=== PATIENT | female | born 1980 | race Caucasian/White ===

== ENCOUNTER 2022-05-18 14:11 | Emergency (ER) | payer OTHER, SELFPAY ==
[2022-05-18 16:00] VITALS: BP 135/78; PULSE 82; RESP 18; TEMP 36.6; O2SAT 99; BMI 31.4
--- NOTE | 2022-05-18 16:07 | ED_ITS ---
HPI - General Adult General Chief complaint: General Medical Stated complaint: Neck Pain Radiating to Head Nausea Time Seen by Provider: 05/18/22 16:43 History of Present Illness HPI narrative: Patient is a 41-year-old female presents today with having left-sided neck pain. It is on the side. There is no spinal tenderness. There is no fever no chills. Patient also had a history of sciatica. Goes onto the leg. There is no bowel urinary incontinence. Patient was given some muscle relaxant sent home. Denies any focal weakness. She has missed her. Her last menstruation was approximately 40 days prior. The pain is sharp. Worse with specific movements. Patient from home. There is no focal weakness. Related Data Previous Rx's Medication Instructions Recorded ibuprofen 400 mg tablet 400 mg PO Q6H PRN pain #20 tabs 05/18/22 Allergies Allergy/AdvReac Type Severity Reaction Status Date / Time No Known Allergies Allergy Verified 05/18/22 15:59 Review of Systems Review of Systems: Positive left sided neck pain Yes all other systems are reviewed and are negative [facility] Past Medical History Attestation statement: The following information was validated with the patient. Social History Social History Advance Directives: No Advance Directives Information Provided: Yes Physical Exam ED Vital Signs: Vital Signs - 24 hr 05/18/22 16:00 Temperature 97.8 F Pulse Rate 82 Respiratory Rate 18 Blood Pressure 135/78 Pulse Oximetry 99 Oxygen Delivery Method Room Air BMI result Body Mass Index 31.4 Appearance: Alert. Oriented X3. No acute distress. Eyes: Pupils equal, round and reactive to light. ENT: Pharynx normal. Neck: Normal inspection. Neck supple. No lymph nodes noted. No crepitus. There is no spinal tenderness elicited. Positive pain on palpation of the trapezius muscle on the left side. CVS: Normal heart rate and rhythm. Pulses normal. Normal S1 and S2 Respiratory: No respiratory distress. Breath sounds normal. No Wheezing. No rales Abdomen: Soft and nontender. No rigidity. No distention. good BS x4 Skin: Skin warm and dry. Normal skin color. Normal skin turgor. Extremities: No lower extremity edema. Neurovascular intact to all extremities. No Lacerations. No Rash Neuro: Oriented X 3. No motor deficit. No sensory deficit. Moving all extermities. No slurred speech. Sensation in the bilateral lower extremity i ntact. Motor intact ambulating with normal gait. Medical Decision Making Medical Decision Making MDM Narrative: Patient's pain worse with specific movement consistent with having torticollis. Will give Motrin for pain. Patient missed her menstruation will check her status. Unlikely she has subarachnoid hemorrhage. Unlikely he has cauda equina syndrome as patient is neurologically intact and history not consistent with having an intracranial bleed. She is well appearing. Will ask patient to continue taking Flexeril. In stable condition Discharge Plan Discharge Clinical Impression: Torticollis Patient Disposition: Home, Self-Care Instructions: Spasmodic Torticollis (ED) Prescriptions: New ibuprofen 400 mg tablet 400 mg PO Q6H PRN (Reason: pain) Qty: 20 0RF Referrals: Physician,Unknown J [Primary Care Provider] - (Follow-up with your primary physician on an outpatient basis. Uncontrolled pain return.)
[2022-05-18 16:47] LABS: UPreg QC Valid YES; Urine Pregnancy NEGATIVE (NEGATIVE)
--- OUTSIDE RECORDS SUMMARY | 2022-05-18 17:09 | XMS_ITS ---
:1980 Author Care Team Providers Name Role Phone Fred Carver Primary Care Provider Unavailable Allergies None recorded. Medications Name Status Start Date Stop Date ? ? amoxicillin 500 mg capsule Active ? Not a vailable azithromycin 250 mg tablet Active ? Not a vailable Cetrotide 0.25 mg subcutaneous kit Active ? Not available clomiphene citrate 50 mg tablet Active ? Not available clonazepam 1 mg tablet Active ? Not avail able doxycycline hyclate 100 mg tablet Active ? Not available fluoxetine 10 mg capsule Active ? Not valencia ilable fluoxetine 20 mg capsule Active ? Not valencia ilable Gonal-F RFF Redi-Ject 900 unit/1.5 mL subcutaneous pen Active ? Not available injector letrozole 2.5 mg tablet Active ? Not avai lable leuprolide 1 mg/0.2 mL subcutaneous kit Active ? Not available levothyroxine 25 mcg tablet Active ? Not available lorazepam 1 mg tablet Active ? Not availa ble Menopur 75 unit subcutaneous solution Active ? Not available omeprazole 20 mg capsule,delayed release Active ? Not available Ovidrel 250 mcg/0.5 mL subcutaneous syringe Active ? Not available prednisone 5 mg tablet Active ? Not avail able Problems None recorded. Procedures None recorded. Results Lab Results None recorded. Past Encounters None recorded. Social History None recorded. Vaccine List None recorded. Plan of Care Reminders Provider Appointments None recorded. ? ? Lab None recorded. ? ? Referral None recorded. ? ? Procedures None recorded. ? ? Surgeries None recorded. ? ? Imaging None recorded. ? ? Vitals None recorded.
== END 2022-05-18 17:24 | disposition home or self-care (01) ==
PROVIDERS: Emergency Provider Emergency Medicine Emergency Medical Services
DX: M43.6 Torticollis (principal); M54.2 Cervicalgia; R51.9 Headache, unspecified; Z79.899 Other long term (current) drug therapy
CPT/HCPCS: 81025; 99282

== ENCOUNTER 2024-05-24 11:12 | Outpatient (AMB) | payer OTHER, SELFPAY ==
--- OUTSIDE RECORDS SUMMARY | 2024-05-24 11:14 | XMS_ITS | Data Portability ---
Author Organization [facility] (Prof.) Address [address], [address] [place] [address] Assessment No assessment recorded. Plan of Treatment Reminders Order Date Submit Date Provider Last Modified By Organization Details Last Modified Time Details Appointments None record ed. Lab None record ed. Referral None record ed. Procedures None record ed. Surgeries None record ed. Imaging None record ed. Medication Orders None record ed. Patient TargetsNo targets recorded. Patient InstructionsNo instructions recorded. Reason for Referral None Reported. Medical Equipment None Reported. Medications Name Sig Start Date Stop Date Status Note LastModified by Organization Details LastModified Time amoxicillin 500 mg capsule active Not Available Not Available N ot Available azithromycin 250 mg tablet active Not Available Not Availabl e Not Available clomiphene citrate 50 mg tablet active Not Available Not Available Not Available prednisone 5 mg tablet active Not Available Not Available Not Available clonazepam 1 mg tablet active Not Available Not Available Not Available levothyroxine 25 mcg tablet active Not Available Not Availabl e Not Available fluoxetine 10 mg capsule active Not Available Not Available N ot Available omeprazole 20 mg capsule,delayed release active Not Available Not Available Not Available lorazepam 1 mg tablet active Not Available Not Available Not Available letrozole 2.5 mg tablet active Not Available Not Available No t Available Cetrotide 0.25 mg subcutaneous kit active Not Available Not Available Not Available fluoxetine 20 mg capsule active Not Available Not Available N ot Available doxycycline hyclate 100 mg tablet active Not Available Not Available Not Available leuprolide 1 mg/0.2 mL subcutaneous kit active Not Available Not Available Not Available Ovidrel 250 mcg/0.5 mL subcutaneous syringe active Not Available Not Available Not Available Menopur 75 unit subcutaneous solution active Not Available Not Available Not Available Gonal-F RFF Redi-Ject 900 unit/1.5 mL subcutaneous pen injector active Not Available Not Available Not Available Vitals None Recorded Social History None recorded. Functional Status None recorded. Mental Status None recorded. Family History Nothing Reported. Medical History No medical history recorded. Gynecological HistoryNo gynecological history recorded. Obstetrics History GPAL:G 0 P 0 0 0 0 Past Encounters Encounter ID Performer Location Encounter Start Date Encounter Closed Date Diagnosis/Indication Diagnosis SNOMED-CT Code Diagnosis ICD10 Code [id number] [place] [id number] 10/12/2017 15:19:08 10/12/2017 15:19:39 Health Concerns Section Related Observation LastModified by Organization Detai ls LastModified Time None Recorded Concern Status LastModified by Organization Details LastModified Time None Recorded Advance Directives Directive None Recorded Payers Encounter Date Sequence Insurance Name Policy Number Policy [place] Covered Member ID [place] Member ID Guarantor Name 10/11/[address] [facility] [employer] 105 Talha Guillen [id number] Leeann Guillen OBGyn Episode No OBEpisode recorded.
--- NOTE | 2024-05-24 11:19 | MHC.PC.OV ---
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- aripiprazole 2 mg PO DAILY clonazepam 1 mg PO BID desvenlafaxine succinate ER 50 mg PO DAILY dextroamphetamine-amphetamine 30 mg 1 tab PO DAILY ibuprofen 400 mg PO Q6H PRN omeprazole 20 mg PO DAILY Tobacco use date assessed: 05/24/24 Dental Screening Dental Screen Date: 05/24/24 Did you have a dental visit in the last 12 months?: No Did you have a dental problem in the last 6 months where you did not have access to dental care?: No Was dental information given to patient?: Patient has dentist HPI HPI Comments History of Present Illness Details 43 y/o F ADHD, GERD, JYOTSNA, PTSD, deviated septum, cold induced asthma, family hx of colon ca and colonic polyps, 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 She has a long-standing history of panic disorder with agoraphobia, generalized anxiety disorder, and complex post-traumatic stress disorder with onset in adolescence. She has been under psychiatric care since the age of 18, with ongoing management of her anxiety and panic symptoms, including the use of clonazepam which she takes responsibly without overuse. The patient reports previously switching from her psychiatrist to a primary care physician for medication management before resuming care with her psychiatrist, Eliza Guzmán. She experiences chronic insomnia exacerbated by anxiety, compounding her fatigue. She reports a history of ADHD, with intermittent use of prescribed Adderall, which she finds conflicting with her schedule. Furthermore, the patient mentions weight gain since the COVID pandemic, attributing it partly to stress and lifestyle changes. The patient presents a history of a deviated nasal septum leading to sinus infections and sleep disturbance, often resulting in her mouth breathing. She experiences symptoms consistent with IBS, which she associates with anxiety. Additionally, she reports TMJ as a stress-related condition affecting her jaw alignment. Wants referral to breast surgeon for reduction. 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 on PPI - Musculoskeletal: Reports jaw alignment issues, TMJ - Reproductive: Menstrual cycle regularity discussed Physical Exam - Vital Signs- Blood pressure 122/70 mmHg Awake alert NAD RRR LS CTAB Mood and affect appropriate Plan - Continue clonazepam under psychiatrist's supervision for anxiety and panic control - Reinforce adherence to psychiatric medications prescribed - Schedule and complete lab tests including complete metabolic panel and thyroid function - Provide ENT referral for assessment of deviated septum and possible sleep apnea - GI referral for IBS and chronic heartburn evaluation, including colonoscopy due to family history - Discuss weight management and dietary counseling as needed Refer to breast surgeon Patient was informed and verbally consented to the use of an ambient scribe for clinic note documentation during this visit. Discussion Notes During the consultation, I discussed the management of the patient's psychiatric conditions, emphasizing the need to adhere to medications under her psychiatrist?s guidance. We reviewed the potential chronicity of ADHD and discussed the importance of investigating possible contributing factors to her weight gain. I advised on lab work to rule out metabolic disorders, including thyroid dysfunction and vitamin deficiencies. The patient expressed interest in addressing chronic sinus issues, prompting ENT referral for a comprehensive evaluation. We addressed concerns regarding IBS symptoms, providing a GI referral to manage these along with recommendations for weight management strategies. Consent was obtained for laboratory testing and vaccinations. Patient Instructions - Follow up on all lab work ordered and attend scheduled imaging and consultations - Continue with current psychiatric medications and attend follow-up appointments with a psychiatrist - Use prescribed medications for IBS and heartburn as needed - Consider scheduling a full physical exam for a more thorough assessment - Report any new or worsening symptoms, especially related to anxiety or gastrointestinal changes - Continue monitoring and maintaining a healthy lifestyle, diet, and weight management - Sign up for the patient portal for easy communication and access to test results and appointments RTO IN 6 WEEKS TO REVIEW LABS, CLINICAL BREAST EXAM AND PAP, SOONER PRN THIS NOTE IS CONSTRUCTED USING VOICE RECOGNITION SOFTWARE. 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 TOTAL TIME SPENT CARING FOR THE PATIENT TODAY WAS 50 MINUTES. THIS INCLUDES TIME SPENT BEFORE THE VISIT REVIEWING THE CHART, TIME SPENT DURING THE VISIT, AND TIME SPENT AFTER THE VISIT ON DOCUMENTATION [facility] Medical History Anxiety and depression Imbalance GERD (gastroesophageal reflux disease) IBS (irritable bowel syndrome) Back disorder Thyroid disease Sinusitis Surgical History H/O shoulder surgery Family History (Updated 05/24/24 @ 12:41 by Dania Oconnell MA) Mother Hypertension Cardiovascular disease Alcoholism Father Hypertension High cholesterol Sister Asthma Maternal Grandfather Alcoholism Social History (Updated 05/24/24 @ 11:30 by Dania Oconnell MA) Household Members: Children Both parents involved: No Caregiver staying overnight: No Housing: House Are you a primary lead caregiver to a significant other at home: Yes Do you presently have visiting nurse or other home services: No 75 years or older and lives alone: No Alcohol intake: current Alcohol intake frequency: a few times a month Patient Tobacco Use Status: Never used Tobacco e-Cigarette/Vaping Use: Currently Using Second Hand Smoke Exposure: No service: No Current occupational status: employed 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 1. Little interest or pleasure in doing things: not at all 2. Feeling down, depressed, or hopeless: several days 3. Trouble falling or staying asleep, or sleeping too much: more than half the days 4. Feeling tired or having little energy: several days 5. Poor appetite or overeating: more than half the days 6. Feeling bad about yourself - or that you are a failure or have let yourself or your family down: several days 7. Trouble concentrating on things, such as reading the newspaper or watching television: several days 8. Moving or speaking so slowly that other people could have noticed. Or the opposite - being so fidgety or restless that you have been moving around a lot more than usual: not at all 9. Thoughts that you would be better off or of hurting yourself in some way: not at all Total score: 8 Depression Screening Interpretation: Positive Depression Screening Follow-up: Existing condition and In treatment Depression Screening Done: Yes 17799 - PHQ-9 Billing: Yes Source: Developed by Drs. Geoffrey Capellan, Beth Cheek, Fernando Costello and colleagues, with an educational marina from [employer]. Thrive Questionnaire Date Thrive assessed: 05/24/24 I am a: Patient What is your living situation today?: I have a steady place to live Within the past 12 months, did the food you bought not last and you didn't have the money to get more?: Never true Within the past 12 months, did you worry whether your food would run out before you got money to buy more?: Never true Do you have trouble paying for medicines?: No Do you have trouble getting transportation to medical appointments?: No Do you have trouble paying your heating and electricity bill?: No Do you have trouble taking care of your child, family member or friend?: No Do you have trouble with day-to-day activities such as bathing, preparing meals, shopping, managing finances, etc.?: Yes (sometimes) Are you currently unemployed and looking for a job?: No Are you interested in more education?: No Please select the resources that you would like help with: None THRIVE Score: 0 AUDIT C Alcohol Use Questionnaire (AUDIT-C) 1. How often do you have a drink containing alcohol?: 2-4 times a month 2. How many drinks containing alcohol do you have on a typical day when you are drinking?: 3 or 4 3. How often do you have six or more drinks on one occasion?: Never Total Score: 3 Score Reviewed/Action Taken: Yes JYOTSNA-7 AMB Questionnaire JYOTSNA-7 Date JYOTSNA - 7 assessed: 05/24/24 Feeling nervous, anxious, or on edge: 2 = More than half the days Not being able to stop or control worryin = More than half the days Worrying too much about different things: 1 = Several days Trouble relaxin = Not at all Being so restless that it is hard to sit still: 0 = Not at all Becoming easily annoyed or irritable: 1 = Several days Feeling afraid as if something awful might happen: 1 = Several days Total JYOTSNA-7 score (0-4 normal; 5-9 mild; 10-14 moderate; 15-21 severe): 7 Source: Developed by Drs. Geoffrey Capellan, Beth Cheek, Fernando Costello and colleagues, with an educational marina from [employer]. JYOTSNA-7 Assessment Billing JYOTSNA-7 Assessment Tool: JYOTSNA-7 Assessment 58644 Physical exam (Primary Care) Vital Signs: Last Vital Signs Pulse 78 05/24/24 11:31 Resp 13 05/24/24 11:31 BP 122/70 05/24/24 11:31 Pulse Ox 97 05/24/24 11:31 Oxygen Delivery Method Room Air 05/24/24 11:31 BMI result Body Mass Index 30.9 BMI Assessment/Plan discussion: High BMI High, discussed plan: lifestyle Tobacco/Smoking Status: Tobacco use Status Tobacco use date assessed 05/24/24 05/24/24 11:33 Patient Tobacco Use Status Never used Tobacco 05/24/24 11:33 e-Cigarette/Vaping Use Currently Using 05/24/24 11:33 PHQ-9: PHQ-9 Score PHQ-9: Total score 8 05/24/24 12:44 Depression Screening Interpretation: Positive Depression Screening Follow-up: Existing condition and In treatment Thrive Assessment: Date of Thrive Assessment Date Thrive assessed 05/24/24 05/24/24 12:44 Office Procedures Flu Questionnaire Does the patient have a severe egg allergy?: No Does the patient have severe life threatening allergies?: No Does the patient have a fever or illness today?: No Has the patient ever had Guillain-[place] Syndrome?: No Has the patient ever had any past reaction to a flu shot?: No Immunizations Fluarix Triv [id number] (PF) 45 mcg (15 mcg x 3)/0.5 mL IM syringe Performing Provider: BILL Rodas Performing Location: [facility] Family Medicine Administered by: Rolanda Rivera RN on 05/24/24 12:28 Dose Route Admin Location Dispensed Lot Number Expiration Date [facility] Cad Librarian 0.5 mL IM Right Deltoid 0.5 mL [id number] 12/09/24 [id number] Cor[employer] VIS Given Date VIS Provided VIS Publication Date 05/24/24 Single Vaccine 21 Eligibility Eligibility Date Funding Source Not [facility] Eligible 05/24/24 Private Coding Level of Care Code New Pt Level 5 (04472) Complex EM visit Add On G2211 Diagnoses Encounter to establish care Z76.89 JYOTSNA (generalized anxiety disorder) F41.1 PTSD (post-traumatic stress disorder) F43.10 BMI 30.0-30.9,adult Z68.30 Obesity (BMI 30-39.9) E66.9 Laboratory exam ordered as part of routine general medical examination Z00.00 Deviated septum J34.2 Family history of colon cancer Z80.0 Family history of colonic polyps Z83.719 Bilateral temporomandibular joint pain M26.623 Laterality: bilateral GERD without esophagitis K21.9 Gynecomastia, female N62 Influenza vaccination administered at current visit Z23 Additional Codes JYOTSNA-7 Assessment Billing - JYOTSNA-7 Assessment Tool: JYOTSNA-7 Assessment 75866 ([id number]) PHQ-9 - 93601 - PHQ-9 Billing: Yes ([id number]) Assessment & Plan Assessment & Plan (1) Encounter to establish care: Code(s): Z76.89 - Persons encountering health services in other specified circumstances (2) JYOTSNA (generalized anxiety disorder): Code(s): F41.1 - Generalized anxiety disorder Category: Medical (3) PTSD (post-traumatic stress disorder): Code(s): F43.10 - Post-traumatic stress disorder, unspecified Category: Medical (4) BMI 30.0-30.9,adult: Code(s): Z68.30 - Body mass index [BMI] 30.0-30.9, adult Category: Medical (5) Obesity (BMI 30-39.9): Code(s): E66.9 - Obesity, unspecified Category: Medical (6) Laboratory exam ordered as part of routine general medical examination: Code(s): Z00.00 - Encounter for general adult medical examination without abnormal findings Category: Medical (7) Deviated septum: Code(s): J34.2 - Deviated nasal septum Category: Medical (8) Family history of colon cancer: Comment: maternal grandmother Code(s): Z80.0 - Family history of malignant neoplasm of digestive organs Category: Medical (9) Family history of colonic polyps: Comment: DAD Code(s): Z83.719 - Family history of colon polyps, unspecified Category: Medical (10) TMJ arthralgia: Code(s): M26.629 - Arthralgia of temporomandibular joint, unspecified side Category: Medical Qualifiers: Laterality: bilateral Qualified Code(s): M26.623 - Arthralgia of bilateral temporomandibular joint (11) GERD without esophagitis: Code(s): K21.9 - Gastro-esophageal reflux disease without esophagitis Category: Medical (12) Gynecomastia, female: Code(s): N62 - Hypertrophy of breast Category: Medical (13) Influenza vaccination administered at current visit: Code(s): Z23 - Encounter for immunization Plan . Orders: Orders Complete Blood Count no Diff Today Z00.00 - Encounter for general adult medical examination without abnormal findings Comprehensive Met. Panel Today Z00.00 - Encounter for general adult medical examination without abnormal findings Lipid Panel Today Z00.00 - Encounter for general adult medical examination without abnormal findings IRON PROFILE Today Z00.00 - Encounter for general adult medical examination without abnormal findings TSH reflex Free T4 Today Z00.00 - Encounter for general adult medical examination without abnormal findings Influenza [id number] Immunization Today Z23 - Encounter for immunization Hemoglobin A1c Today Z00.00 - Encounter for general adult medical examination without abnormal findings Microalbumin, Random (w Creat) Today Z00.00 - Encounter for general adult medical examination without abnormal findings Vitamin B12 and Folate Today Z00.00 - Encounter for general adult medical examination without abnormal findings Vitamin D 25-OH Total Today Z00.00 - Encounter for general adult medical examination without abnormal findings Referrals Breast Surgery Referral N62 - Hypertrophy of breast Ear/Nose/Throat Referral J34.2 - Deviated nasal septum Gastroenterology Referral K21.9 - Gastro-esophageal reflux disease without esophagitis, Z12.11 - Encounter for screening for malignant neoplasm of colon, Z80.0 - Family history of malignant neoplasm of digestive organs, Z83.719 - Family history of colon polyps, unspecified Medications: New omeprazole 20 mg PO DAILY 90 caps 2RF Patient Instructions: [facility] [place], [place] / [place], [place] [phone]:[id number] Walk-In Care (Urgent Care): We Make it Easy Walk-in for urgent medical issues such as: ? Seasonal Allergies ? Insect Bites ? Cough ? Diarrhea ? Acute Asthma Attacks ? Back, Knee or Joint Pain ? Ear Infection ? Fever without a Rash ? Headaches ? Nausea ? Bend Eye, Rash or Skin Irritation ? Sore Throat ? Sports Physicals ? Vomiting Most insurances are accepted. Patients do not need to be part of the [facility] to seek care at the walk-in clinic. Locations [facility] , [place] [address] ? [phone] [facility] Walk-In Care in [place] provides services to ages 18 and over. Open Monday-Monday: 8 a.m. to 5 p.m. and Monday: 9 a.m. to 3 p.m.* *Hours may vary due to staffing availability. To confirm Walk-In Care hours in [place], please call [phone]. [address] [place] [address] ? [phone] [facility] Walk-In Care in [place] provides services to ages 12 and over. Open Monday-Monday: 8 a.m. to 5 p.m. Hours may vary due to staffing availability. To confirm Walk-In Care hours in [place], please call [phone]. LABORATORY SERVICES: [facility] Lab ? Primary Location [address] [place] [address] Monday through Monday 6:00 AM ? 5:00 PM Monday 7:00 AM ? 11:00 AM* [phone] The [facility] Lab is centrally located near the front entrance of the [facility] for easy outpatient access. Convenient parking is provided for outpatients. *Hours may vary due to staffing availability. To confirm Laboratory hours for any location, please call [phone]. Offsite Location For your convenience, we offer offsite laboratory draw stations at the following locations: [address] [place] [address] ? [facility] [address] [facility], [address], [place] Monday through Monday 7:30 AM ? 1:00 PM* [phone] *Hours may vary due to staffing availability. To confirm Laboratory hours for any location, please call [phone]. [place] ? [address], [place] Monday through Monday 6:00 AM ? 3:30 PM* Monday 6:30 AM ? 3 PM* [phone] *Hours may vary due to staffing availability. To confirm Laboratory hours for any location, please call [phone] [place] [address] Monday through Monday 7:30 AM ? 4:00 PM* [phone] *Hours may vary due to staffing availability. To confirm Laboratory hours for any location, please call [phone] [place] [address] Monday through 9:00 AM ? 4:00 PM* *Hours may vary due to staffing availability. To confirm Laboratory hours for any location, please call [phone]. Appointments are not necessary. Walk-ins are welcome. Like all the departments throughout the [facility], our Lab undergoes frequent reviews to ensure the quality and accuracy of test results, and our staff takes special pride in its status as a nationally accredited facility. Patient Portal: ONE PATIENT. ONE RECORD. BETTER CARE. [facility] has a fully integrated, cutting-edge mobile electronic health information system that has revolutionized the way we care for our patients and manage our organization. This system improves communication and coordination enabling us to provide safe, higher-quality care, and an overall positive experience for staff and patients. Our first priority, as always, is to deliver the highest quality care possible. The system is running in the background supporting that priority. This portal is for all [facility] services and practices. If you are experiencing any technical difficulties with enrolling or logging into the Patient Portal please complete the [facility] Patient Portal Technical Support Form. [facility] now offers a new secure on-line interactive tool for patients to review their health information ? Patient Portal. This interactive web portal will enable patients and their families to take an active role in their care by providing easy, secure access to their health information via the internet. The Patient Portal provides patients with instant access to their health information, including laboratory results, medications, allergies, demographic information, visit history, and more. In addition to managing their own care, parents and health care proxies with authorized consent will appreciate the ability to access the records of those individuals for whom they provide care. Please note: if you wish to gain access (Proxy) to another patient?s portal, you will be required to come to the Medical Records Department in person at [facility]. Both the patient giving proxy access and the proxy will need to provide photo identification and complete the appropriate authorization. The Patient Portal also allows track their appointments online. The [facility] Patient Portal also saves patients time by allowing them to submit updates to their demographic and contact information prior to their visits. Portal email notifications will also alert patients to any new activity on their portal, such as test results and new appointments. In order to initially enroll in the [facility] Patient Portal, you will need to enter some required information including the following: ? your [facility] Medical Record number ? your personal home email address ? name ? date of Please note: In order to enroll in the [facility] Patient Portal, we need to have your email address on file in your electronic medical record. The email address needs to be specific for one person (yourself) in order for your Portal enrollment to be successful. You can update your email address in person with our Registration staff when you are registering for a hospital visit. Otherwise, you will need to come to the Health Information Management (Medical Records) Department at [facility]. We are open from Monday ? Monday from 7:30 a.m. ? 4:30 p.m. You will be required to present a photo id. Once you have successfully enrolled in the Patient Portal, you will receive a one-time user id and password for the Portal, sent to your email address. This will allow you to log into the Patient Portal within 99 hrs and reset your own logon id and password, and define personal security questions. Once your permanent login and password have been set, you can log into the [facility] Patient Portal at any time via the blue button above or from the Portal Logon button on any page of the [facility] website. [facility] encourage all of our patients to enroll in Patient Portal as it presents a valuable opportunity for patients and their families to actively participate in their care and stay healthy Welcome to [facility]. We look forward to working with you.
[2024-05-24 11:31] VITALS: BP 122/70; PULSE 78; RESP 13; O2SAT 97; BMI 30.9
== END 2024-05-24 12:27 | disposition home or self-care (01) ==
PROVIDERS: Visit Provider Nurse Practitioner Family
DX: J34.2 Deviated nasal septum (principal); F41.1 Generalized anxiety disorder; E66.9 Obesity, unspecified; Z68.30 Body mass index [BMI] 30.0-30.9, adult; F43.10 Post-traumatic stress disorder, unspecified; Z76.89 Persons encountering health services in other specified circumstances; Z80.0 Family history of malignant neoplasm of digestive organs; Z83.719 Family history of colon polyps, unspecified; M26.623 Arthralgia of bilateral temporomandibular joint; K21.9 Gastro-esophageal reflux disease without esophagitis; N62 Hypertrophy of breast; Z23 Encounter for immunization

== ENCOUNTER → 2024-05-24 11:12 | Outpatient (BNVA) | payer SELFPAY | PROVIDERS: Visit Provider Nurse Practitioner Family | DX: Z76.89 Persons encountering health services in other specified circumstances (principal); Z23 Encounter for immunization; F41.1 Generalized anxiety disorder; F43.10 Post-traumatic stress disorder, unspecified; E66.9 Obesity, unspecified; Z68.30 Body mass index [BMI] 30.0-30.9, adult; J34.2 Deviated nasal septum; M26.623 Arthralgia of bilateral temporomandibular joint; K21.9 Gastro-esophageal reflux disease without esophagitis; N62 Hypertrophy of breast; Z80.0 Family history of malignant neoplasm of digestive organs; Z83.719 Family history of colon polyps, unspecified | CPT/HCPCS: 90471; 90656; 96127 ==

== ENCOUNTER 2025-02-26 09:40 | Outpatient (REF) | payer OTHER, SELFPAY | END 2025-02-26 09:41 | disposition home or self-care (01) | LOC: HO.LNP 09:40 | PROVIDERS: PCP Nurse Practitioner Family; Visit Provider Nurse Practitioner Family | DX: Z11.3 Encounter for screening for infections with a predominantly sexual mode of transmission (principal); Z12.4 Encounter for screening for malignant neoplasm of cervix; N32.81 Overactive bladder; E66.9 Obesity, unspecified; N39.0 Urinary tract infection, site not specified; E78.2 Mixed hyperlipidemia; R79.89 Other specified abnormal findings of blood chemistry; Z68.31 Body mass index [BMI] 31.0-31.9, adult | CPT/HCPCS: 88175; 96127 ==

== ENCOUNTER 2025-02-26 09:40 | Outpatient (AMB) | payer OTHER, MEDICAID, SELFPAY ==
--- OUTSIDE RECORDS SUMMARY | 2025-02-25 14:00 | XMS_ITS | Encounter Summary ---
Author Organization [facility] Address [address] [place] [address] [place] [id number] Phone Care Team Providers Care Vice Principal Name Role Phone Pcp, Unknown Primary Care Provider Unavailabl e Reason for Visit * Reason Comments Urinary Tract Infection Nausea, back genevieve n, lower abdominal pressure, cloudy urine. Urinary urgency and frequency. No concern for STDs. Encounter Details Date Type Department Care Team ([facility] st Contact Info) Description 02/25/2025 2:00 PM EDT Office Visit [facility] at [address] [address] Jocelyn Marte, FUEL VERIFICATION TECHNICIAN [address] [place] [id number] [email or web address] Acute cystitis without hematuria (Primary Dx); Frequency of micturition Social History Tobacco Use Types Packs/Day Years Used Date Smoking Tobacco: Former Smokeless Tobacco: Never Alcohol Use Standard Drinks/Week Comments Yes 0 (1 standard drink = 0.6 oz pur e alcohol) social Education Answer Date Recorded Are you interested in more education? Not on suresh e 10/08/2022 Are you concerned about learning? Not on file 10/08/2022 No 10/08/2022 No 10/08/2022 Digital Access Answer Date Recorded No 11/06/2022 No 11/06/2022 Reliable internet access at home? Not on file 11/06/2022 Device with a working camera? Not on file Comments Unknown Sex and Gender Information Value Date Recorded Sex Assigned at Not on file Legal Sex Female 8:56 AM EST Gender Identity Not on file Sexual Orientation Not on file documented as of this encounter Last Filed Vital Signs Vital Sign Reading Time Taken Comments Blood Pressure 131/86 02/25/2025 2:08 PM EDT Pulse 82 02/25/2025 2:08 PM EDT Temperature 37.2 C (98.9 F) 02/25/2025 2:08 PM EDT Respiratory Rate 18 02/25/2025 2:08 PM EDT Oxygen Saturation 98% 02/25/2025 2:08 PM EDT Inhaled Oxygen Concentration - - Weight - - Height - - Body Mass Index - - documented in this encounter Patient Instructions * Patient Instructions* Jocelyn Marte CNP - 02/25/2025 2:00 PM EDT Unfortunately it does appear as though there is a urinary tract infection Stay hydrated and use ogel-lyz-tdjydch cranberry tabs for symptomatic relief The full dose of antibiotic as prescribed Develop fever or back pain in the next 24 hours seek emergent follow-up care * Attachments The following attachments cannot be sent through Care Everywhere. * Nitrofurantoin (Syriac) documented in this encounter Progress Notes * Jocelyn Marte CNP - 02/25/2025 2:00 PM EDTAddended by: JOCELYN MARTE on: 02/25/2025 03:50 PM Modules accepted: Orders * Jocelyn Marte CNP - 02/25/2025 2:00 PM EDT Images from the original note were not included. Subjective: Patient ID: Leeann Guillen is a 44 y.o. female. 44-year-old female presents with question of cystitis. States about 5 days ago she noted some dysuria. She no longer has dysuria but notes some nausea, lower abdominal pressure, cloudy urine with a strong odor. Patient has no history of renal calculi. She states there is some mild low back pain butthat is after she bent over to pet her cat this morning and she felt some discomfort. Denies risk for STIs. No vaginal discharge or lesions. Patient states she has felt feverish and chilly on and offbut has not run an actual fever. Review of Systems Constitutional: Positive for fatigue. Negative for chills, diaphoresis and fever. States feels alternately feverish and chilly but not actually running a fever HENT: Negative for postnasal drip, rhinorrhea, sore throat and trouble swallowing. Respiratory: Negative for cough. Gastrointestinal: Positive for nausea. Negative for abdominal pain (upset stomach) and vomiting. Genitourinary: Positive for dysuria, frequency, pelvic pain (pressure) and urgency. Negative for flank pain, genital sores, blood in urine, menstrual problem, vaginal bleeding, vaginal discharge and vaginal pain. Allergic/Immunologic: Negative for immunocompromised state. Hematological: Does not bruise/bleed easily. Skin: Negative for persistent rash. Vitals: 02/25/25 1408 BP: 131/86 Pulse: 82 Resp: 18 Temp: 37.2 ??C (98.9 ??F) SpO2: 98% Objective: Physical Exam Vitals and nursing note reviewed. Constitutional: General: She is not in acute distress. Appearance: Normal appearance. She is obese. She is not ill-appearing, toxic- appearing or diaphoretic. HENT: Head: Normocephalic and atraumatic. Cardiovascular: Rate and Rhythm: Normal rate and regular rhythm. Heart sounds: Normal heart sounds. No murmur heard. No friction rub. No gallop. Pulmonary: Effort: Pulmonary effort is normal. No respiratory distress. Breath sounds: Normal breath sounds. No stridor. No wheezing or rhonchi. Abdominal: General: There is no distension. Palpations: Abdomen is soft. There is no mass. Tenderness: There is no abdominal tenderness. There is no right CVA tenderness, left CVA tenderness, guarding or rebound. Hernia: No hernia is present. Skin: General: Skin is warm and dry. Neurological: General: No focal deficit present. Mental Status: She is alert and oriented to person, place, and time. Psychiatric: Mood and Affect: Mood normal. Behavior: Behavior normal. Results for orders placed or performed in visit on 02/25/25 POCT Urine Dipstick (Automated) Result Value Ref Range COLOR Yellow TURBIDITY Slightly Cloudy GLUCOSE, POCT Negative Negative KETONE, POCT Negative Negative OCCULT BLOOD, POCT Negative Negative SPECIFIC GRAVITY, POCT 1.025 1.001 - 1.030 ALBUMIN, POCT Negative Negative Bili Negative Negative Urobilinogen 0.2 <1.0 NITRITE, POCT Positive (*) Negative PH, POCT 6.5 5.0 - 8.0 WBC SCREEN, POCT Trace (*) Negative Procedure: Procedures Assessment/Plan: No diagnosis found. Assessment and Plan: 44-year-old female with PMH: Obesity, chronic fatigue, anxiety and hypothyroidism who is COVID vaccinated without booster and latest flu vaccine 05/24/2024 presents with question of cystitis 5 days ago noted dysuria-no longer has dysuria but has increased urinary urgency, frequency-notes urine is cloudy and there is an odor Mild nausea without vomiting No fever, chills or sweats There is some bilateral low back pain that began this morning after she bent over to pet her cat (-) CVA tenderness No evidence of pyelonephritis or PID There is only trace leukocytes however positive nitrite without any use of yeip-vhu-eijwzgy Azo or other medication Will treat with nitrofurantoin patient is aware to stay hydrated-please see AVS for further information including red flag symptoms and when to seek follow-up care if necessary documented in this encounter Plan of Treatment Pending Results Name Type Priority Associated Diagnoses Date /Time Urine Culture Microbiology Routine Frequency of micturition 02/25/2025 3:50 PM EDT documented as of this encounter Procedures Procedure Name Priority Date/Time Associated Diagnosis Comments URINE CULTURE Routine 02/25/2025 3:50 PM EDT Frequency of micturition POCT URINE DIPSTICK Routine 02/25/2025 2 :17 PM EDT documented in this encounter Results * (ABNORMAL) POCT Urine Dipstick (Automated) (02/25/2025 2:17 PM EDT) COLOR Yellow [facility] TURBIDITY Slightly Cloudy [facility] GLUCOSE, POCT Negative Negative [facility] KETONE, POCT Negative Negative [facility] OCCULT BLOOD, POCT Negative Negative [facility] SPECIFIC GRAVITY, POCT 1.025 1.001 - 1.030 [facility] ALBUMIN, POCT Negative Negative [facility] Bili Negative Negative [facility] Urobilinogen 0.2 <1.0 [facility] NITRITE, POCT Positive(A) Negative [facility] PH, POCT 6.5 5.0 - 8.0 [facility] WBC SCREEN, POCT Trace(A) Negative [facility] 02/25/2025 2:17 PM EDT 02/25/2025 2:20 PM EDT Jocelyn Marte FUEL VERIFICATION TECHNICIAN POINT OF CARE TEST ORDERABL ES Final Result [facility] [address] [id number], [facility] [phone] documented in this encounter Visit Diagnoses Diagnosis Acute cystitis without hematuria- Primary Frequency of micturition Urinary frequency documented in this encounter Care Teams Vice Principal Relationship Specialty Start Date End Date Pcp, Unknown PCP - General 01/28/25 documented as of this encounter Additional Source Comments The information contained in this document represents components of the legal health record. It is not the complete legal health record.[facility]
--- NOTE | 2025-02-26 09:45 | A.OFFPC_ITS ---
Vital Signs 3 02/26/25 09:53 Height 5 ft 8 in Weight 208 lb 8 oz BMI 31.7 BP 122/72 Blood Pressure Location Lt brachial Position Sitting Respiration 12 Pulse 78 Pulse Source Pulse Oximeter Temp 97.1 F Temp Source Oral Pulse Oximetry (%) 98 Oxygen Delivery Method Room Air Intake Visit Reasons: bladder issues Intake Note: Patient c/o lower back px and Patient c/o of a whole and a lump in her vagina. Patient need refill on meds. Patient also needs a referral for breast reduction. Employment Interviewer Required: No Allergies No Known Allergies Allergy (Verified 02/26/25 10:09) Medication List - Last Reconciled 02/26/25 by Randa Choi, DONOR SERVICES TEAM LEADER- aripiprazole 2 mg PO DAILY clonazepam 1 mg PO BID drospirenone-ethinyl estradiol 3-0.02 mg (MESHA (28)) 1 tab PO DAILY ibuprofen 400 mg PO Q6H PRN omeprazole 20 mg PO DAILY trospium 20 mg PO DAILY Tobacco use date assessed: 02/26/25 Dental Screening Dental Screen Date: 02/26/25 Did you have a dental visit in the last 12 months?: Yes Did you have a dental problem in the last 6 months where you did not have access to dental care?: No Was dental information given to patient?: Patient has dentist HPI HPI Comments 2 History of Present Illness0 Details 44 y/o F ADHD, GERD, JYOTSNA, PTSD, deviated septum, cold induced asthma, family hx of colon ca and colonic polyps, OAB 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 Reports that she started with UTI symptoms a few days ago. She did go to an urgent care center yesterday and was prescribed antibiotics. She has been taking them as directed and reports that she has had profound improvement in her symptoms. She is currently in a new relationship sexually, she has no concerns for any STDs, however yesterday she placed her finger inside of her vagina and thought that she felt a whole or something funny on her cervix. She is requesting a stud master/mistress exam. She is due for a Pap smear. Plan: Pap obtained today along w/ BV and GC swabs. UA negative. Await results and treat as appropriate. Cont AB for UTI. Lifestyle mods for cholesterol and LFT RTO as scheduled for CPE. Total time spent caring for the patient today was 61 minutes. This includes time spent before the visit reviewing the chart, time spent during the visit, and time spent after the visit on documentation, reviewing laboratory results, diagnostic imaging, medications, performing a medically necessary evaluation, counseling on diagnoses, care coordination, ordering appropriate tests, ordering appropriate medications, review of tests performed by other providers, reporting test results with the patient, communication with other healthcare providers. [facility] Medical History (Updated 02/26/25 @ 17:24 by BILL Rodas) Anxiety and depression Back disorder GERD (gastroesophageal reflux disease) History of dislocation of shoulder IBS (irritable bowel syndrome) Imbalance Sinusitis Thyroid disease Surgical History (Updated 06/10/24 @ 18:11 by BILL Rodas) H/O LEEP H/O shoulder surgery Family History (Updated 05/24/24 @ 12:41 by Dania Oconnell MA) Mother Hypertension Cardiovascular disease Alcoholism Father Hypertension High cholesterol Sister Asthma Maternal Grandfather Alcoholism Social History (Updated 05/24/24 @ 11:30 by Dania Oconnell MA) Household Members: Children Housing: House Are you a primary child care director to a significant other at home: Yes Do you presently have visiting nurse or other home services: No Alcohol intake: current Alcohol intake frequency: a few times a month Patient Tobacco Use Status: Never used Tobacco e-Cigarette/Vaping Use: Currently Using Second Hand Smoke Exposure: No service: No Current occupational status: employed 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 1. Little interest or pleasure in doing things: not at all 2. Feeling down, depressed, or hopeless: several days 3. Trouble falling or staying asleep, or sleeping too much: several days 4. Feeling tired or having little energy: several days 5. Poor appetite or overeating: more than half the days 6. Feeling bad about yourself - or that you are a failure or have let yourself or your family down: several days 7. Trouble concentrating on things, such as reading the newspaper or watching television: not at all 8. Moving or speaking so slowly that other people could have noticed. Or the opposite - being so fidgety or restless that you have been moving around a lot more than usual: not at all 9. Thoughts that you would be better off or of hurting yourself in some way: not at all Total score: 6 Depression Screening Interpretation: Positive Depression Screening Follow-up: Existing condition and In treatment Depression Screening Done: Yes 74380 - PHQ-9 Billing: Yes Source: Developed by Drs. Geoffrey Capellan, Beth Cheek, Fernando Costello and colleagues, with an educational marina from [employer]. Thrive Questionnaire Date Thrive assessed: 02/26/25 I am a: Patient What is your living situation today?: I have a steady place to live Within the past 12 months, did the food you bought not last and you didn't have the money to get more?: Never true Within the past 12 months, did you worry whether your food would run out before you got money to buy more?: Never true Do you have trouble paying for medicines?: No Do you have trouble getting transportation to medical appointments?: No Do you have trouble paying your heating and electricity bill?: No Do you have trouble taking care of your child, family member or friend?: No Do you have trouble with day-to-day activities such as bathing, preparing meals, shopping, managing finances, etc.?: No Are you currently unemployed and looking for a job?: No Are you interested in more education?: No Please select the resources that you would like help with: None Currently or been in a relationship where the following occur: Controlled Emotionally THRIVE Score: 1 AUDIT C Alcohol Use Questionnaire (AUDIT-C) 1. How often do you have a drink containing alcohol?: 2-4 times a month 2. How many drinks containing alcohol do you have on a typical day when you are drinking?: 1 or 2 3. How often do you have six or more drinks on one occasion?: Less than monthly Total Score: 3 Score Reviewed/Action Taken: Yes JYOTSNA-7 AMB Questionnaire JYOTSNA-7 Date JYOTSNA - 7 assessed: 02/26/25 Feeling nervous, anxious, or on edge: 1 = Several days Not being able to stop or control worryin = Several days Worrying too much about different things: 1 = Several days Trouble relaxin = Several days Being so restless that it is hard to sit still: 0 = Not at all Becoming easily annoyed or irritable: 1 = Several days Feeling afraid as if something awful might happen: 1 = Several days Total JYOTSNA-7 score (0-4 normal; 5-9 mild; 10-14 moderate; 15-21 severe): 6 Source: Developed by Drs. Geoffrey Capellan, Beth Cheek, Fernando Costello and colleagues, with an educational marina from [employer]. JYOTSNA-7 Assessment Billing JYOTSNA-7 Assessment Tool: JYOTSNA-7 Assessment 65583 Physical exam (Primary Care) Vital Signs: Last Vital Signs Temp 97.1 F 02/26/25 09:53 Pulse 78 02/26/25 09:53 Resp 12 02/26/25 09:53 BP 122/72 02/26/25 09:53 Pulse Ox 98 02/26/25 09:53 Oxygen Delivery Method Room Air 02/26/25 09:53 BMI result Body Mass Index 31.7 BMI Assessment/Plan discussion: High BMI High, discussed plan: lifestyle Tobacco/Smoking Status: Tobacco use Status Tobacco use date assessed 02/26/25 02/26/25 09:48 Patient Tobacco Use Status Never used Tobacco 02/26/25 09:48 e-Cigarette/Vaping Use Currently Using 02/26/25 09:48 PHQ-9: PHQ-9 Score PHQ-9: Total score 6 02/26/25 10:10 Depression Screening Interpretation: Positive Depression Screening Follow-up: Existing condition and In treatment Thrive Assessment: Date of Thrive Assessment Date Thrive assessed 02/26/25 02/26/25 09:48 Currently or been in a relationship where the following occur: Controlled Emotionally Const General: cooperative, healthy appearing, comfortable and no acute distress Orientation/consciousness: patient oriented x3 Limitations: no limitations HENMT Head: Yes normal to inspection Resp Effort & Inspection: normal respiratory effort and able to speak in complete sentences GI Inspection: Yes normal to inspection General: Yes bladder normal to palpation and Yes no CVA tenderness External Female Exam: normal external appearance, normal appearance of the urethra and lesion (Right, flat brown macule) Speculum Exam - Vagina: normal appearance of the vagina, normal palpation and normal vaginal discharge Speculum Exam - Cervix: normal palpation, Cervical os open, Cervical lesion present (9-12 o clock) nodule, Nabothian cyst present and Nulliparous cervix present Bimanual exam- vagina & uterus: normal palpation, bladder normal to palpation, normal palpation, uterine mobility normal and non-tender Bimanual Exam- Adnexa, other: no masses and normal OB/external & speculum: external exam normal, Cervical os open and vaginal discharge Female genitals images: 2 1. flat macule Back/Spine/Pelvis Back: no CVA tenderness Neuro General: patient oriented x3 Results AMB Urinalysis, Automated 2 UA Leukoctes 0 Marybeth/uL Last Edit by Dania Cruz MA on 02/26/25 10:13 UA Nitrite Negative Last Edit by Dania Cruz MA on 02/26/25 10:13 UA Urobilinogen 3.5 mg/dL Last Edit by Dania Cruz MA on 02/26/25 10:13 UA Protein 0 mg/dL Last Edit by Dania Cruz MA on 02/26/25 10:13 UA pH 6.0 Last Edit by Dania Cruz MA on 02/26/25 10:13 UA Blood 0 Kiko/uL Last Edit by Dania Cruz MA on 02/26/25 10:13 UA Specific [place] 1.015 Last Edit by Dania Cruz MA on 02/26/25 10:1 3 UA Ketone Negative Last Edit by Dania Cruz MA on 02/26/25 10:13 UA Bilirubin 0 mg/dL Last Edit by Dania Cruz MA on 02/26/25 10:13 UA Glucose 0 mg/dL Last Edit by Dania Cruz MA on 02/26/25 10:13 Results Reviewed Results Reviewed: Laboratory Last Values Urine pH (Auto) 6.0 02/26/25 10:12 Specific [place] (Auto) 1.015 02/26/25 10:12 Urine Protein (Auto) 0 mg/dL 02/26/25 10:12 Glucose (UA)(Auto) 0 mg/dL 02/26/25 10:12 Urine Ketones (Auto) Negative 02/26/25 10:12 Urine Blood (Auto) 0 Kiko/uL 02/26/25 10:12 Urine Nitrite (Auto) Negative 02/26/25 10:12 Urine Bilirubin (Auto) 0 mg/dL 02/26/25 10:12 Urine Urobilinogen (Auto) 3.5 mg/dL 02/26/25 10:12 Leukocyte Esterase (Auto) 0 Marybeth/uL 02/26/25 10:12 Test Result Units Range Flag Collected White Blood Count 5.5 X10*3/uL (4.8-10.8) 02/26/25 Red Blood Count 4.67 X10*6/uL (4.20-5.50) 02/26/25 Hemoglobin 13.3 g/dl (12.0-16.0) 02/26/25 Hematocrit 39.8 % (37.0-47.0) 02/26/25 Mean Corpuscular Volume 85.2 fL (80.0-98.0) 02/26/25 Mean Corpuscular Hemoglobin 28.5 pg (27.0-33.0) 02/26/25 Mean Corpuscular Hemoglobin Concent 33.4 g/dl (31.0-35.0) 02/26/25 Red Cell Distribution Width 12.8 % (11.0-16.0) 02/26/25 Platelet Count 205 X10*3/uL (160-400) 02/26/25 Mean Platelet Volume 9.8 fL (9.4-12.3) 02/26/25 Nucleated RBC Absolute Count (auto) 0.000 X10*3/uL (0.0-0.012) 02/26/25 Nucleated Red Blood Cells % (auto) 0.0 /100WBC (0.0-0.2) 02/26/25 Sodium Level 139 mmol/L (135-145) 02/26/25 Potassium Level 3.9 mmol/L (3.3-5.1) 02/26/25 Chloride Level 104 mmol/L (96-108) 02/26/25 Carbon Dioxide Level 27 mmol/L (22-29) 02/26/25 Anion Gap 12 (12-20) 02/26/25 Blood Urea Nitrogen 14 mg/dL (9-16) 02/26/25 Creatinine 0.86 mg/dL (0.5-1.4) 02/26/25 Estimated Creatinine Clearance Calc Not Reportable 02/26/25 Estimat Glomerular Filtration Rate > 60 02/26/25 Random Glucose 106 mg/dL (60-115) 02/26/25 Estimated Average Glucose 126 mg/dL 02/26/25 Hemoglobin A1c Percent 6.0 % (<6.0) 02/26/25 Calcium Level 9.8 mg/dL (8.4-10.2) 02/26/25 Iron Level 87 mcg/dL (30-160) 02/26/25 Total Iron Binding Capacity 321 mcg/dL (228-428) 02/26/25 Percent Iron Saturation 27 % (15-50) 02/26/25 Unsaturated Iron Binding 234 ug/dL 02/26/25 Total Bilirubin 0.4 mg/dL (0.0-1.0) 02/26/25 Aspartate Amino Transf (AST/SGOT) 35 U/L (5-31) High 02/26/25 Alanine Aminotransferase (ALT/SGPT) 35 U/L (0-31) High 02/26/25 Alkaline Phosphatase 63 U/L (39-117) 02/26/25 Total Protein 7.6 g/dL (6.5-8.0) 02/26/25 Albumin 4.8 g/dL (3.5-5.0) 02/26/25 Triglycerides Level 144 mg/dL (<150) 02/26/25 Cholesterol Level 311 mg/dL (<200) High 02/26/25 LDL Cholesterol, Calculated 227 mg/dL (<100) High 02/26/25 HDL Cholesterol 56 mg/dL (>40) 02/26/25 Vitamin B12 Level 407 pg/mL (200-900) 02/26/25 25-Hydroxy Vitamin D Total 57.7 ng/mL (>30) 02/26/25 Folate 10.2 ng/mL (> or = 4.0) 02/26/25 Thyroid Stimulating Hormone (TSH) 1.42 uIU/mL (0.32-4.0) 02/26/25 Coding Level of Care Code Est Pt Level 5 (17803) Complex EM visit Add On G2211 Diagnoses OAB (overactive bladder) N32.81 BMI 30.0-30.9,adult Z68.30 Obesity (BMI 30-39.9) E66.9 Urinary tract infection without hematuria, site unspecified N39.0 Urinary tract infection type: site unspecified Hematuria presence: without hematuria Cervical cancer screening Z12.4 Mixed hyperlipidemia E78.2 Hyperlipidemia type: mixed hyperlipidemia Elevated LFTs R79.89 CPT Codes [facility] OUTPT/OFFICE VIS - G2212 Additional Codes JYOTSNA-7 Assessment Billing - JYOTSNA-7 Assessment Tool: JYOTSNA-7 Assessment 70637 ([id number]) PHQ-9 - 73924 - PHQ-9 Billing: Yes ([id number]) Assessment & Plan Assessment & Plan (1) OAB (overactive bladder): Code(s): N32.81 - Overactive bladder Category: Medical (2) BMI 30.0-30.9,adult: Code(s): Z68.30 - Body mass index [BMI] 30.0-30.9, adult Category: Medical (3) Obesity (BMI 30-39.9): Code(s): E66.9 - Obesity, unspecified Category: Medical (4) UTI (urinary tract infection): Code(s): N39.0 - Urinary tract infection, site not specified Category: Medical Qualifiers: Urinary tract infection type: site unspecified Hematuria presence: w ithout hematuria Qualified Code(s): N39.0 - Urinary tract infection, site not specified (5) Cervical cancer screening: Onset Date: ~02/26/25 Code(s): Z12.4 - Encounter for screening for malignant neoplasm of cervix Category: Medical (6) HLD (hyperlipidemia): Code(s): E78.5 - Hyperlipidemia, unspecified Category: Medical Qualifiers: Hyperlipidemia type: mixed hyperlipidemia Qualified Code(s): E78.2 - Mixed hyperlipidemia (7) Elevated LFTs: Code(s): R79.89 - Other specified abnormal findings of blood chemistry Category: Medical Plan . Orders: Orders 2 AMB Urinalysis Automated Today Z13.9 - Encounter for screening, unspecified CT NG by PCR Vag/Cerv Today Z11.3 - Encounter for screening for infections with a predominantly sexual mode of transmission, Z12.4 - Encounter for screening for malignant neoplasm of cervix Bacterial Vaginosis Panel Today Z11.3 - Encounter for screening for infections with a predominantly sexual mode of transmission, Z12.4 - Encounter for screening for malignant neoplasm of cervix Pap Smear Today Z11.3 - Encounter for screening for infections with a predominantly sexual mode of transmission, Z12.4 - Encounter for screening for malignant neoplasm of cervix Microalbumin, Random (w Creat) Today Z00.00 - Encounter for general adult medical examination without abnormal findings
[2025-02-26 09:53] VITALS: BP 122/72; PULSE 78; RESP 12; TEMP 36.2; O2SAT 98; BMI 31.7
--- OUTSIDE RECORDS SUMMARY | 2025-02-26 11:28 | XMS_ITS | Clinical Summary ---
Author Organization Formerly [facility] Address [address] [place], [place] [id number] Phone Care Team Providers Care Counter Installer Name Role Phone Pcp, Unknown Primary Care Provider Unavailabl e Allergies No known active allergies Medications clonazePAM (KLONOPIN) 1 MG tablet 06/28/2021 Active omeprazole (PRILOSEC) 20 MG capsule 07/06/2021 Active ARIPiprazole (ABILIFY) 2 MG tablet take 1 tablet by mouth everyday at bedtime 12/23/2024 Active dextroamphetami ne-amphetamine (ADDERALL) 30 mg Tab tablet TAKE 1 TAB BY MOUTH IN THE MORNING FOR ADHD. 12/17/2024 Active YVONNE, 28, 3-0.02 mg per tablet 01/16/2025 Active sertraline (ZOLOFT) 100 MG tablet Take 2 tablets by mouth every morning. 12/20/2024 Active trospium (SANCTURA) 20 mg tablet Take 2 tablets by mouth every morning. 02/06/2025 Active nitrofurantoin (MACROBID) 100 MG capsule Take 1 capsule (100 mg total) by mouth 2 (two) times a day for 5 days. 10 capsule 02/25/2025 03/02/20 25 Active Active Problems Problem Noted Date Diagnosed Date Anxiety state 05/21/2024 Class 1 obesity without seri ous comorbidity with body mass index (BMI) of 31.0 to 31.9 in adult 11/15/2023 Assessment & Plan (11/15/2023 12:22 PM EDT): The patient informs me that she is not dieting and exercising. She has gained weight she would like to lose weight. She states that she has an appointment in August with a new primary care physician. I suggested to the patient that she start monitoring her diet and exercising because most insurance company will not give her the medication unless she has try diet and exercise first and in some cases she will have to see a dietitian and that we will have to be documented. She should ask her primary care physician for weight loss medications especially GLP-1 agonist she does not have any contraindications. As I stated we are not doing obesity management and it is unfortunate that the patient was scheduled for this appointment because that should not have happened. So I would let her see her primary care physician in the future to discuss this. Chronic fatigue 07/09/2021 Assessment & Plan (07/09/2021 9:24 AM EST): Patient has chronic fatigue she has history of vitamin D deficiency currently not on vitamin D supplements. She would like for thyroid function panel checked and that is fine her TSH levels have been in the reference range but is okay to repeat the thyroid functions just for the patient's insurance if everything is normal then obviously the problem is not her thyroid. Also check TPO antibodies for evaluation of Héctor's thyroiditis although she has no known family history of thyroid disorder. Check cortisol level for evaluation of adrenal insufficiency/questions. Intact PTH for hyper/hyperparathyroidism IGF-I for growth hormone insufficiency. And a comprehensive level to check for any electrolyte, hepatic, renal abnormalities this must be done fasting because her glucose levels in the past have been elevated but she does not think she was fasting when she did the lab work. I will check vitamin B1 because deficiency is associated with myalgias, fatigue, memory loss. Hair loss 07/09/2021 Assessment & Plan (07/09/2021 9:22 AM EST): Patient complains of thinning hair she believes her hair was much thicker. I will check dihydrotestosterone levels, testosterone, vitamin D, vitamin A, vitamin B12, zinc and selenium. She must do everything fasting. Health care maintenance 07/09/2021 Assessment & Plan (07/09/2021 9:24 AM EST): The patient states she has some menstrual problems but recently has been fine regular menstruating regularly I will check FSH. She is also concerned about her lipid profile because of question of hypothyroidism which can result in elevated LDL I will check fasting lipid panel. Hypothyroid 05/18/2017 Overview (02/25/2025): Tsh level trimester Encounters Date Type Department Care Team Description 02/25/2025 2:00 PM EDT Office Visit [facility] at [address] [address] Jocelyn Bates CNP Acute cystitis without hematuria (Primary Dx); Frequency of micturition 01/28/2025 2:40 PM EDT Office Visit [facility] at [address] [address] Kinga Weston, Chayito Gonzalez CNP Otalgia, right (Primary Dx) from Last 3 Months Immunizations No known immunizations Family History Medical History Relation Comments Hypertension Father Depression Mother Mitral valve prolapse Mother Relation Status Comments Father Alive Mother Alive Social History Tobacco Use Types Packs/Day Years [...] on file Sexual Orientation Not on file Last Filed Vital Signs Vital Sign Reading Time Taken Comments Blood Pressure 131/86 02/25/2025 2:08 PM EDT Pulse 82 02/25/2025 2:08 PM EDT Temperature 37.2 C (98.9 F) 02/25/2025 2:08 PM EDT Respiratory Rate 18 02/25/2025 2:08 PM EDT Oxygen Saturation 98% 02/25/2025 2:08 PM EDT Inhaled Oxygen Concentration - - Weight 83.9 kg (185 lb) 01/28/2025 2:43 PM EDT Height 172.7 cm (5' 8 ) 01/28/2025 2:43 PM EDT Body Mass Index 28.13 01/28/2025 2:43 PM EDT Plan of Treatment Health Maintenance Due Date Last Done Comments LIPID PANEL 1979 DEPRESSION SCREENING 1991 SMOKING Hx and SMOKELESS TOBACCO SCREENING 11/18/1992 HEPATITIS C SCREENING 11/18/1997 HIV ONE-TIME SCREENING (18-6 5 YEARS) 11/18/1997 SCREENING FOR DIABETES 11/18/2014 PAP SMEAR 04/16/2022 04/16/2019 COLOGUARD 11/18/2024 COLONOSCOPY 11/18/2024 COLORECTAL CANCER SCREENING 11/18/2024 FIT TEST 11/18/2024 FOBT 11/18/2024 SIGMOIDOSCOPY 11/18/2024 VIRTUAL COLONOSCOPY 11/18/2024 INFLUENZA VACCINE (#1) 2025 , 05/21/2018, 04/23/2012 COVID-19 VACCINE (3 - 2024-2 6 season) 2025 01/13/2021, 12/23/2020 MAMMOGRAM 12/24/2026 12/24/2024, 12/24/2024 Adult Td,Tdap Booster 10/20/2027 10/19/2017 HEPATITIS A VACCINES Aged Out No long er eligible based on patient's age to complete this topic HIB VACCINES Aged Out No longer eligi ble based on patient's age to complete this topic MENINGOCOCCAL VACCINES (ACWY) Aged Out No longer eligible based on patient's age to complete this topic MENINGOCOCCAL VACCINES (B) Aged Out N o longer eligible based on patient's age to complete this topic PNEUMOCOCCAL VACCINES (0-49 years) Aged Out No longer eligible b ased on patient's age to complete this topic Medical Devices Not on file Procedures Procedure Name Priority Date/Time Associated Diagnosis Comments URINE CULTURE Routine 02/25/2025 3:50 PM EDT Frequency of micturition POCT URINE DIPSTICK Routine 02/25/2025 2 :17 PM EDT EAR CERUMEN REMOVAL Routine 01/28/2025 3 :43 PM EDT Otalgia, right from Last 3 Months Results * (ABNORMAL) POCT Urine Dipstick (Automated) (02/25/2025 2:17 PM EDT) COLOR Yellow [facility] TURBIDITY Slightly Cloudy [facility] GLUCOSE, POCT Negative Negative [facility] KETONE, POCT Negative Negative [facility] OCCULT BLOOD, POCT Negative Negative [facility] SPECIFIC GRAVITY, POCT 1.025 1.001 - 1.030 [facility] ALBUMIN, POCT Negative Negative [facility] Bili Negative Negative [facility] Urobilinogen 0.2 <1.0 [facility] NITRITE, POCT Positive(A) Negative [facility] PH, POCT 6.5 5.0 - 8.0 [facility] WBC SCREEN, POCT Trace(A) Negative [facility] 02/25/2025 2:17 PM EDT 02/25/2025 2:20 PM EDT Jocelyn Bates CNP POINT OF CARE TEST ORDERABL ES Final Result [facility] [address] [place] [address], [facility] [phone] * EAR CERUMEN REMOVAL (01/28/2025 3:43 PM EDT) Other Narrative Chayito Tafoya CNP - 01/28/2025 3:43 PM EDT Chayito Tafoya CNP 01/28/2025 8:22 PM Cerumen Removal Date/Time: 01/28/2025 3:43 PM Visualization: Otoscopy Cerumen in: Right ear Removed with: IrrigationComments: Right ear was irrigated. Pt tolerated well. Gomer Protocol: Verbal consent obtained: Yes Written consent obtained: Yes Time out: Immediately prior to the procedure, a time out was called to verify that there is a signed consent form and that the correct patient, planned procedure, site and side are consistent with documentation and that necessary equipment and/or blood products are available prior to the start of the case. Kinga Weston FIREPERSON PROCEDURE/MINOR SURGICAL OR DERABLES Final Result from Last 3 Months Insurance [employer] Member Subscriber Plan / Payer ( fective 2018-Present) Name:Leeann Guillen Relation to Subscriber:Self Name:Leeann Guillen Payer ID:[id number] ([facility]) Group ID:[id number] Type:PPO Address: [address] [place] [id number] [employer] [facility] [employer] Care Teams Counter Installer Relationship Specialty Start Date End Date Pcp, Unknown PCP - General 01/28/25 Additional Source Comments The information contained in this document represents components of the legal health record. It is not the complete legal health record.Formerly [facility]
--- OUTSIDE RECORDS SUMMARY | 2025-02-26 11:28 | XMS_ITS | Clinical Summary ---
Author Organization [facility] Address [address] [place] [id number] Care Team Providers Care Warehouse Incentive Selector Name Role Phone Alisa Lucio MD Primary Care Provider [phone] Social History Tobacco Use Types Packs/Day Years Used Date Smoking Tobacco: Never Assessed Sex and Gender Information Value Date Recorded Sex Assigned at Not on file Gender Identity Not on file Sexual Orientation Not on file Plan of Treatment Health Maintenance Due Date Last Done Comments Hepatitis B Vaccines (1 of 3 - 3-dose series) 1979 Hepatitis C Screening 1979 COVID-19 Vaccine (#1) 05/20/1980 Depression Screening 1991 Preventative Health Evaluation 11/18/1997 DTap / Tdap / Td (1 - Tdap) 11/18/1998 Cervical Cancer Screening (P ap Smear) 11/18/2000 Colon Cancer Screening (Colonoscopy) 11/18/2024 Influenza Vaccine (#1) 2025 Pneumococcal Vaccine Aged Out No long er eligible based on patient's age to complete this topic RSV Ped < 20 months Aged Out No longe r eligible based on patient's age to complete this topic Care Teams Warehouse Incentive Selector Relationship Specialty Start Date End Date Alisa Lucio MD [address] [place] [id number] PCP - General Pediatrics 04/17/17
--- OUTSIDE RECORDS SUMMARY | 2025-02-26 11:28 | XMS_ITS | Clinical Summary ---
Author Organization [address] Address [address] [place] [address] Phone Care Team Providers Care Engineering Teacher Name Role Phone Unavailable Primary Care Provider Unavailabl e Allergies No known active allergies Medications omeprazole (PriLOSEC) [address] capsule Take 1 capsule (20 mg total) by mouth 1 (one) time each day. 11/03/2023 Active FLUoxetine (PROzac) 40 mg capsule Take 1 capsule (40 mg total) by mouth 2 (two) times a day. 06/15/2021 Active vit no.124/iron/fol ic ( VITAMIN ORAL) Take 1 tablet by mouth 1 (one) time each day. 12/06/2017 Active clonazePAM (KlonoPIN) 1 mg tablet Take 1 mg by mouth 2 times daily as needed. Active Active Problems Problem Noted Date Diagnosed Date Anxiety state 05/21/2024 Macromastia 03/09/2020 Neck pain 03/09/2020 Hypothyroid 05/18/2017 Overview (05/21/2024): Tsh level trimester Encounters Date Type Department Care Team Description 12/24/2024 7:50 AM EDT - 12/24/2024 11:59 PM EDT Hospital Encounter Radiology Department - [address] [phone] Other abnormal and inconclusive findings on diagnostic imaging of breast Discharge Disposition: Home or Self Care from Last 3 Months Immunizations Name Administration Dates Next Due Tdap Tetanus diptheria acell ular pertussis (Boostrix; Adacel) 7yo and older 10/19/2017 Surgical History Surgery Date Site/Laterality Comments OTHER SURGICAL HISTORY PROCEDURE: ARTHROSCOPY PROCEDURE NEC Medical History Medical History Date Comments Anxiety state DX:Anxiety state Abnormal cytological finding in specimen from cervix DX:Abnormal cytological find ing in specimen from cervix History of infertility DX:Histor y of infertility AMA (advanced maternal age) multigravida 35+ DX:AMA (advanced maternal ag e) multigravida 35+ Anxiety and depression DX:Anxiet y and depression Family History Medical History Relation Name Comments Hypertension Father Arthritis Mother Breast cancer Other M GRT GM Relation Name Status Comments Father Mother Other M GRT GM Social History Tobacco Use Types Packs/Day Years Used Date Smoking Tobacco: Never Smokeless Tobacco: Never Alcohol Use Standard Drinks/Week Comments No 0 (1 standard drink = 0.6 oz pur e alcohol) Comments Unknown Sex and Gender Information Value Date Recorded Sex Assigned at Not on file Legal Sex Female 6:10 AM EST Gender Identity Not on file Sexual Orientation Not on file Obstetrics History Para Term AB IAB SAB Ectopic Multiple Livin g Live Births 2 2 2 2 Date Outcome GA Total Labor Labor/2nd/3rd Weight Sex Type Anes PTL Dana A1 A5 Name Clin Term Term Last Filed Vital Signs Vital Sign Reading Time Taken Comments Blood Pressure 122/88 11/03/2023 9:18 AM EDT Pulse 83 11/03/2023 9:18 AM EDT Temperature - - Respiratory Rate - - Oxygen Saturation - - Inhaled Oxygen Concentration - - Weight 94 kg (207 lb 3.2 oz) 11/03/2023 9:18 AM EDT Height 172.7 cm (5' 8 ) 11/03/2023 9:18 AM EDT Body Mass Index 31.5 11/03/2023 9:18 AM EDT Plan of Treatment Health Maintenance Due Date Last Done Comments Hepatitis B Vaccines (1 of 3 - 19+ 3-dose series) 11/18/1998 COVID-19 Vaccine (3 - Pfizer risk series) 02/10/2021 01/13/2021, 12/23/2020 Colorectal Cancer Screening: Colonoscopy 05/15/2022 Social Influencers of Health Screening 05/15/2022 Cervical Cancer Screening: HPV 04/16/2024 04/16/2019 Depression Screening 06/12/2024 Influenza Vaccine (#1) 2025 4, 05/21/2018, 04/23/2012 Breast Cancer Screening 12/24/2026 12/25/19 25, 12/15/2023, 12/15/2023 DTaP,Tdap,and Td Vaccines (2 - Td or Tdap) 10/20/2027 10/19/2017 HIV Screening Completed 05/18/2017 Hepatitis C Screening Completed 05/18/2017 HIB Vaccines Aged Out No longer eligi ble based on patient's age to complete this topic HPV Vaccines Aged Out No longer eligi ble based on patient's age to complete this topic Hepatitis A Vaccines Aged Out No long er eligible based on patient's age to complete this topic IPV Vaccines Aged Out No longer eligi ble based on patient's age to complete this topic MMR Vaccines Aged Out No longer eligi ble based on patient's age to complete this topic Meningococcal ACWY Vaccine Aged Out N o longer eligible based on patient's age to complete this topic Meningococcal B Vaccine Aged Out No l onger eligible based on patient's age to complete this topic Pneumococcal Vaccine: Pediatrics (0 to 5 Years) and At-Risk Patients (6 to 49 Years) Aged Out No longer eligible b ased on patient's age to complete this topic RSV Immunization Patients Under 20 months Aged Out No longer eligible b ased on patient's age to complete this topic Varicella Vaccines Aged Out No longer eligible based on patient's age to complete this topic Procedures Procedure Name Priority Date/Time Associated Diagnosis Comments MG MAMMO DIGITAL SCREENING W LUKE BILAT Routine 12/24/2024 8:07 AM EDT Other abnormal and inconclusive findings on diagnostic imaging of breast HPV Routine 04/16/2019 HEPATITIS C SCREENING Routine 05/18/2017 HIV SCREENING Routine 05/18/2017 from Last 3 Months or Most Recently Relevant to Health Maintenance Results * MG Mammo Digital Screening w Luke bilat (12/24/2024 8:07 AM EDT) Anatomical Region Laterality Modality Breast Bilateral Mammography 12/25/2024 12:4 7 PM EDT Impressions 12/25/2024 12:57 PM EDT 1. No mammographic evidence of malignancy 2. Heterogeneous breast parenchyma BI-RADS CATEGORY: 2 - BENIGN RECOMMENDATION: Screening bilateral mammogram is recommended in 1 year. Mammo Location: [facility], [address] [place] [address], [id number], . -------- FINAL REPORT -------- Dictated By: Mansi Albarran Dictated Date: 12/25/2024 12:47 ET Assigned Physician: Mansi Albarran Reviewed and Electronically Signed By: Mansi Albarran Signed Date: 12/25/2024 12:57 ET Workstation ID: [id number] Transcribed By: Self Edit Transcribed Date: 12/25/2024 12:47 ET Narrative 12/25/2024 12:57 PM EDT A BILATERAL DIGITAL 3D SCREENING MAMMOGRAPHY HISTORY: Routine screening. COMPARISON: Multiple priors dating back to 12/16/2022 Technique: Bilateral full field digital mammography (3D) was performed using standard CC and MLO projections CAD was used to evaluate this mammogram. FINDINGS: Right: No suspicious masses, groups of microcalcification or areas of architectural distortion identified. Stable typically benign parenchymal asymmetries. Left: No suspicious masses, groups of microcalcification or areas of architectural distortion identified. Stable typically benign parenchymal asymmetries. BREAST DENSITY: C - The breasts are heterogeneously dense which may obscure small masses. Procedure Note Mansi Albarran MD - 12/25/2024 A BILATERAL DIGITAL 3D SCREENING MAMMOGRAPHY HISTORY: Routine screening. COMPARISON: Multiple priors dating back to 12/16/2022 Technique: Bilateral full field digital mammography (3D) was performedusing standard CC and MLO projections CAD was used to evaluate this mammogram. FINDINGS: Right: No suspicious masses, groups of microcalcification or areas ofarchitectural distortion identified. Stable typically benign parenchymalasymmetries. Left: No suspicious masses, groups of microcalcification or areas ofarchitectural distortion identified. Stable typically benign parenchymalasymmetries. BREAST DENSITY: C - The breasts are heterogeneously dense which mayobscure small masses. IMPRESSION: 1. No mammographic evidence of malignancy 2. Heterogeneous breast parenchyma BI-RADS CATEGORY: 2 - BENIGN RECOMMENDATION: Screening bilateral mammogram is recommended in 1 year. Mammo Location: [facility], [address], [place], [address], . -------- FINAL REPORT -------- Dictated By: Mansi Albarran Dictated Date: 12/25/2024 12:47 ET Assigned Physician: Mansi Albarran Reviewed and Electronically Signed By: Mansi Albarran Signed Date: 12/25/2024 12:57 ET Workstation ID: [id number] Transcribed By: Self Edit Transcribed Date: 12/25/2024 12:47 ET Heather Reyes CNM IMG BI PROCEDURES Final Result * Cervical Cancer Screening: HPV (04/16/2019) Cervical Cancer Screening: HPV abstracted, negative Historical Provider MD HEALTH MAINTENANCE Final Result * HIV Screening (05/18/2017) HIV Screening abstracted Historical Provider MD HEALTH MAINTENANCE Final Result * Hepatitis C Screening (05/18/2017) Hepatitis C Screening abstracted Historical Provider HEALTH MAINTENANCE Final Result from Last 3 Months or Most Recently Relevant to Health Maintenance Insurance [employer]
== END 2025-02-26 10:35 | disposition home or self-care (01) ==
LOC: HO.HMCFM 09:41
PROVIDERS: PCP Nurse Practitioner Family; Visit Provider Nurse Practitioner Family
DX: N32.81 Overactive bladder (principal); Z68.30 Body mass index [BMI] 30.0-30.9, adult; E66.9 Obesity, unspecified; N39.0 Urinary tract infection, site not specified; Z12.4 Encounter for screening for malignant neoplasm of cervix; E78.2 Mixed hyperlipidemia; R79.89 Other specified abnormal findings of blood chemistry

== ENCOUNTER 2025-02-26 10:29 | Outpatient (REF) | payer OTHER, SELFPAY ==
[2025-02-26 15:19] LABS: Hematocrit 39.8 % (37.0-47.0); Hemoglobin 13.3 g/dl (12.0-16.0); Mean Corpuscular HGB Conc 33.4 g/dl (31.0-35.0); Mean Corpuscular Hemoglobin 28.5 pg (27.0-33.0); Mean Corpuscular Volume 85.2 fL (80.0-98.0); NRBC Abs Auto 0.000 X10*3/uL (0.0-0.012); NRBC Pct Auto 0.0 /100WBC (0.0-0.2); Platelet Count 205 X10*3/uL (160-400); Red Blood Count 4.67 X10*6/uL (4.20-5.50); White Blood Count 5.5 X10*3/uL (4.8-10.8)
[2025-02-26 15:43] LABS: Hemoglobin A1C 151.0888 umol/L
[2025-02-26 15:53] LABS: Alanine Aminotransferase 35 U/L (0-31); Albumin Level 4.8 g/dL (3.5-5.0); Alkaline Phosphatase 63 U/L (39-117); Anion Gap 12 (12-20); Aspartate Amino Transferase 35 U/L (5-31); Blood Urea Nitrogen 14 mg/dL (9-16); Calcium 9.8 mg/dL (8.4-10.2); Carbon Dioxide 27 mmol/L (22-29); Chloride 104 mmol/L (96-108); Cholesterol 311 mg/dL (<200); Estimated Glomerular Filt Rate > 60; HDL Cholesterol 56 mg/dL (>40); Iron 87 mcg/dL (30-160); Percent Iron Saturation 27 % (15-50); Potassium 3.9 mmol/L (3.3-5.1); Sodium 139 mmol/L (135-145); Total Iron Binding Capacity 321 mcg/dL (228-428); Total Protein 7.6 g/dL (6.5-8.0); Triglycerides 144 mg/dL (<150); Unsaturated Iron Binding 234 ug/dL
[2025-02-26 16:19] LABS: Folate 10.2 ng/mL (> or = 4.0); Vitamin B12 407 pg/mL (200-900)
[2025-02-26 19:59] LABS: Microalbum/Creatinine Ratio Ur 5.2 ug/mg cr (<30)
[2025-02-27 09:06] LABS: Bacterial Vaginosis PCR NEGATIVE (Negative); Candida Group PCR NOT DETECTED (Not Detect); Candida glab krusei PCR NOT DETECTED (Not Detect); Trichomonas vaginalis PCR NOT DETECTED (Not Detect)
[2025-02-27 09:59] LABS: CT PCR Urine NOT DETECTED (Not Detect.); NG PCR Urine NOT DETECTED (Not Detect.)
== END 2025-02-26 10:30 | disposition home or self-care (01) ==
LOC: HO.LAB 10:29
PROVIDERS: Visit Provider Nurse Practitioner Family
DX: Z00.00 Encounter for general adult medical examination without abnormal findings (principal); Z12.4 Encounter for screening for malignant neoplasm of cervix; Z13.1 Encounter for screening for diabetes mellitus; Z13.6 Encounter for screening for cardiovascular disorders; Z20.2 Contact with and (suspected) exposure to infections with a predominantly sexual mode of transmission; Z13.29 Encounter for screening for other suspected endocrine disorder
CPT/HCPCS: 80053; 80061; 81515; 82043; 82306; 82570; 82607; 82746; 83036; 83540; 84443; 85027; 87491; 87591

== ENCOUNTER 2025-02-26 10:41 | Outpatient (REF) | payer OTHER, SELFPAY | END 2025-02-26 10:42 | disposition home or self-care (01) | LOC: HO.WFDLDS 10:41 | PROVIDERS: Visit Provider Nurse Practitioner Family | DX: Z13.89 Encounter for screening for other disorder (principal) ==